=== PATIENT | male | born 1945 | race Caucasian/White ===

== ENCOUNTER 2017-06-11 06:46 | Day surgery (SDC) | payer MEDICARE, OTHER ==
[~2017-06-11] VITALS: Ht 190.5 cm; Wt 109.6 kg
[2017-06-11] VITALS (17 sets, daily range): BP systolic 120–165; BP diastolic 70–86; PULSE 71–92; RESP 18; TEMP 97.3–98.1; O2SAT 95–99
[2017-06-11 07:51] LABS: AUTOMATED NEUTROPHIL # 5.1 TH/MM3 (1.8-7.7); BASOPHIL % 0.3 % (0.0-2.0); EOSINOPHIL % 0.8 % (0.0-4.0); HEMATOCRIT 41.2 % (39.0-51.0); HEMO FLAGS DIFF FINAL; LYMPH % 10.8 % (9.0-44.0); LYMPHOCYTE # 0.7 TH/MM3 (1.0-4.8); MEAN CELL VOLUME 93.6 FL (80.0-100.0); MEAN CORPUSCULAR HEMOGLOBIN 32.4 PG (27.0-34.0); MEAN CORPUSCULAR HGB CONC 34.6 % (32.0-36.0); MONO % 8.6 % (0.0-8.0); NEUT % 79.5 % (16.0-70.0); PLATELET COUNT 149 TH/MM3 (150-450); RED CELL DISTRIBUTION WIDTH 14.1 % (11.6-17.2); WHITE BLOOD COUNT 6.4 TH/MM3 (4.0-11.0)
[2017-06-11] MEDS ORDERED: CHOL10008 PO (07:58)
[2017-06-11] MEDS ORDERED: VITA250C3 CHEW (07:58)
[2017-06-11] MEDS ORDERED: POTA99TA4 PO (07:58)
[2017-06-11] MEDS ORDERED: tumeric (07:58)
[2017-06-11] MEDS ORDERED: LISI10TA3 PO (07:58)
[2017-06-11] MEDS ORDERED: XARE20TA PO (07:58)
[2017-06-11 08:00] LABS: APTT (PATIENT) 24.7 SEC (24.3-30.1); INTERNATIONAL NORMALIZED RATIO 1.1 RATIO; PROTHROMBIN TIME - PATIENT 10.7 SEC (9.8-11.6)
[2017-06-11 08:10] LABS: POTASSIUM 4.3 MEQ/L (3.5-5.1)
[2017-06-11] MEDS ORDERED: SODIUM CHLORID 0.9% 500 ML IV PRN (08:15)
[2017-06-11] MEDS ORDERED: METOPROLOL TARTRATE 25 MG TAB PO PRN (08:15)
[2017-06-11] MEDS ORDERED: CHLORHEXIDINE GLUCONATE 2 % 1 PACK (2 CLOTHS) TOPICAL PRN (08:15)
[2017-06-11] MEDS ORDERED: LORazepam 1 MG TAB SL SCH (08:15)
[2017-06-11] MEDS ORDERED: LACTATED RINGER'S 1000 ML IV PRN (08:15)
[2017-06-11] MEDS ORDERED: POVIDONE IODINE 5% (ANTISEPSIS KIT) 4 APPLICATIONS EACH NARE PRN (08:15)
[2017-06-11] MEDS ORDERED: INSULIN HUMAN REGULAR 1,000 UNITS/10 ML VIAL SQ PRN (08:15)
[2017-06-11] MEDS ORDERED: HEPARIN-NS/PF INJ 2,000 ML ONE (08:19)
[2017-06-11] MEDS ORDERED: SODIUM CHLORID 0.9% 500 ML INJ 500 ML IV SCH (08:30)
[2017-06-11] MEDS ORDERED: HEPARIN-D5W 25,000 U/250 ML 250 ML ONE (08:55)
[2017-06-11] MEDS ORDERED: LEVOFLOXACIN 500 MG PREMIX INJ 100 ML IV ONE (08:55)
[2017-06-11] MEDS ORDERED: ISOPROTERENOL HCL 1 MG/5 ML AMP ONE (08:55)
[2017-06-11] MEDS ORDERED: PROTAMINE SULFATE 50 MG/5 ML VIAL ONE ×2 (08:55→11:23)
[2017-06-11] MEDS ORDERED: HEPARIN SODIUM - IV 10,000 UNITS/10 ML VIAL ONE (08:55)
[2017-06-11] MEDS ORDERED: LORazepam 2 MG/ML VIAL IV PUSH PRN (11:15)
[2017-06-11] MEDS ORDERED: ONDANSETRON HCL 4 MG/2 ML VIAL IV PUSH PRN (11:15)
[2017-06-11] MEDS ORDERED: SODIUM CHLOR 0.9% 250 ML INJ 250 ML IV PRN (11:15)
[2017-06-11] MEDS ORDERED: ATROPINE SULFATE 1 MG/ML VIAL IV PUSH PRN (11:15)
[2017-06-11] MEDS ORDERED: oxyCODONE/ACETAMINOPHEN 5 MG/325 MG TAB PO PRN ×2 (11:15)
[2017-06-11] MEDS ORDERED: LIDOCAINE HCL 1% 50 ML VIAL INFIL PRN (11:15)
[2017-06-11] MEDS ORDERED: BACITRACIN OINT 0.9 GM PKT TOP ONE (12:00)
[2017-06-11] MEDS: LISINOPRIL 10 MG TAB PO SCH (12:00)
--- NOTE | 2017-06-11 12:03 | CATHPROC ---
[employer] HIS Report Study Information Study Number Admission Scheduled Start Study Start [id number] Jun 11 2017 6:46AM 06/11/2017 Jun 11 2017 8:05AM [facility] Electrophysiology Study Admit Source Facility Department Other [facility] - Garage Manager Physician and Clinical Staff Initial Beau Santos Immigration Specialist Zuleyma Campbell,RN POSTPARTUM TECH2 Other Anesthesia, ROUNDER AND BACKER Recorder Miesha Joy,RN Scrub Deedee Richardson,RT(R) TECH2 Procedures Performed Procedure Location (Site) Vessel Name Cardioversion ICE CATHETER INSERT RA Atruim RF Ablation LT. ATRIUM LT. ATRIUM Equipment Time Art Instructor Description Size Mfg Part Number Used/Scraped NEEDLE, TRANSSEPTAL NRG 98 08:44 [facility] [id number] Used C1 [employer]/ EP 08:44 KIT, TRANSDUCER / AFIB [id number] Used PACER [id number] CATHETER, TACTICATH ABLAT BUNDLE 08:44 [facility] Used 65 BUNDLE *[id number] BUNDLE [id number] CATHETER, FR7 OPTIMA SPIRAL 08:44 B[facility] FR7 *[id number]- Used BUNDLE BUNDLE [id number] 08:44 [facility] CATHETER, JSN, QUAD BUNDLE FR 5 *[id number]- Used BUNDLE [id number] 08:44 [facility] CATHETER, JSN, QUAD BUNDLE FR 5 *[id number]- Used BUNDLE [id number] SET, COOL POINT TUBING 08:44 BUND[facility] *[id number]- Used BUNDLE BUNDLE SHEATH, FR8.5 STEERABLE SM 08:44 BUND[facility] 71CM [id number] Used 71CM BUNDLE COVER, TRANSDUCER CABLE 08:44 Tonchidot [id number] Used ACUNAV 08:44 CORDIS/PACER SHEATH, FR10 SHERYL 11CM FR 10 [id number] Used 08:44 CORDIS/PACER SHEATH, FR9 SHERYL 11CM FR 9 [id number] Used [id number] 08:44 MEDLINE IND[employer] PACK, CCL CUSTOM * Used *[id number] 08:44 MEDLINE PACER ROWAN, LIMB * 2530 *[id number] Used [id number] 08:44 icix MEDICAL SHEATH, FR4.5 PRELUDE 11CM FR 4.5 Used [id number] 08:44 NAMIC TUBING, HIGH PRESSURE 48" 48" Used *[id number] 08:44 NAMIC TUBING, HIGH PRESSURE 48" 48" Used *[id number] 08:44 [employer] MEDICAL BLANKET,WARM AIR CCL * Used *[id number] 08:44 [facility] MEDICAL ELECTRODE KIT, JENNIFER X SURFACE * Used *[id number] 08:44 [facility] MEDICAL SHEATH, EPS, FR6 FAST CATH FR 6 Used *[id number] 08:44 [facility] MEDICAL SHEATH, EPS, FR7 FAST CATH FR 7 [id number] Used [id number] 08:44 [facility] MEDICAL SHEATH, EPS, FR8 FAST CATH FR 8 Used *[id number] CATHETER, ACUNAV FR10 ICE [id number] 09:46 NAIMA FR 10 Used (NAIMA) *[id number] [facility] PAD, ELECTROSURGICAL 08:44 * [id number] *[id number] Used SURGICAL GROUNDING (BLUE) History: Current Medications Medication Dosage/Unit Route Frequency Last Date/Time Taken LISINOPRIL XARELTO History: Allergies Allergy Reaction strawberry almond History: Risk Factors Hypertension Dyslipidemia Yes Yes History: Symptoms/Diagnosis Selection Items SOB History: Stress Tests Stress or Imaging Studies Performed Yes Standard Exercise Stress Test No Stress Echo No Stress Test SPECT Stress Test SPECT Result Yes Negative Stress Test CMR No Cardiac CTA Coronary Calcium Score No No History: Other Current Smoker No Labs Hgb (g/dl) Hct (%) RBC (MIL/MM3) WBC (l/cumm) Platelets (thousands) 11.60-17.00 35.00-51.00 4.00-5.90 4.00-11.00 150.00-450.00 14.3 41.2 4.4 6.4 149 Glucose (mg/dl) BUN (mg/dl) Creatinine (mg/dl) BUN:Creatinine (1:x) 74.00-106.00 7.00-18.00 0.50-1.30 10.00-20.00 104 13 0.7 18.6 Na (meq/l) K (meq/l) Cl (meq/l) CO2 (mmol/L) Ca (mg/dl) 136.00-145.00 3.50-5.10 98.00-107.00 21.00-32.00 8.50-10.10 140 4.3 108 25 9.4 PT (sec) PTT (sec) INR (PTT:PT) 9.80-11.60 24.30-30.10 0.90-1.10 10.7 24.7 1.1 CPK-MB (ng/ML) 0.50-3.60 Not Drawn Medication Medication Total Dose (Bolus/Oral) Medication Total Dosage/Unit 1% XYLOCAINE 40 mL HEPARIN 97877 units PROTAMINE 60 mg Medications (Bolus/Oral) Medication Time Given Dosage/Unit Administered By Reason 1% XYLOCAINE 06/11/2017 9:37:28 AM 20 mL Beau Butterfield 20 mL 1% XYLOCAINE given in lab by Beau Butterfield in Left Groin via Subcutaneous. 1% XYLOCAINE 06/11/2017 9:42:00 AM 20 mL Beau Butterfield 20 mL 1% XYLOCAINE given in lab by Beau Butterfield in Right Groin via Subcutaneous. HEPARIN 06/11/2017 9:49:31 AM 28776 units Anesthesia, ROUNDER AND BACKER As per physicians ve rbal order 67680 units HEPARIN given in lab by Anesthesia, ROUNDER AND BACKER via Peripheral IV. Ordered by Beau Butterfield. Janey son: As per physicians verbal order. HEPARIN 06/11/2017 10:00:43 AM 4000 units Anesthesia, ROUNDER AND BACKER As per physicians ve rbal order 4000 units HEPARIN given in lab by Anesthesia, ROUNDER AND BACKER via Peripheral IV. Ordered by Beau Butterfield. Reas on: As per physicians verbal order. HEPARIN 06/11/2017 10:13:14 AM 3000 units Anesthesia, ROUNDER AND BACKER As per physicians ve rbal order 3000 units HEPARIN given in lab by Anesthesia, ROUNDER AND BACKER via Peripheral IV. Ordered by Beau Butterfield. Reas on: As per physicians verbal order. HEPARIN 06/11/2017 10:27:58 AM 4000 units Anesthesia, ROUNDER AND BACKER As per physicians ve rbal order 4000 units HEPARIN given in lab by Anesthesia, ROUNDER AND BACKER via Peripheral IV. Ordered by Beau Butterfield. Ollie on: As per physicians verbal order. PROTAMINE 06/11/2017 11:10:25 AM 40 mg Anesthesia, ROUNDER AND BACKER As per physicians wyatt bal order 40 mg PROTAMINE given in lab by Anesthesia, ROUNDER AND BACKER via Peripheral IV. Ordered by Beau Butterfield. Reason: As per physicians verbal order. PROTAMINE 06/11/2017 11:22:24 AM 20 mg Anesthesia, ROUNDER AND BACKER As per physicians wyatt bal order 20 mg PROTAMINE given in lab by Anesthesia, ROUNDER AND BACKER via Peripheral IV. Ordered by Beau Butterfield. Reason: As per physicians verbal order. Medication (Drip) Medication Time Given Dosage/Unit Concentration/Unit Diluent (ml) Solution HEPARIN DRIP 06/11/2017 10:01:23 AM 1000 units/hr 54377 units 250 D5W 1000 units/hr HEPARIN DRIP given in lab by Anesthesia, ROUNDER AND BACKER via Peripheral IV. Pump/Drip Flow = 10 ml /hr using [place] [address] units in 250 ml. Ordered by Beau Butterfield. Reason: As per physicians verbal order. ISUPREL 06/11/2017 10:59:53 AM 20 mcg/min 1 mg 250 NaCl .9 20 mcg/min ISUPREL given in lab by Anesthesia, ROUNDER AND BACKER in Right Forearm via Peripheral IV. Pump/Drip Chandler w = 300 ml/hr using NaCl .9 with a concentration of 1 mg in 250 ml. Ordered by Beau Butterfield. IV Solutions 06/11/2017 8:37:53 AM 0 mL (IV) 500 NaCl .9 IV Solutions given in lab by Miesha Joy RN in Right Forearm via Peripheral IV. Pump/Drip Flow = 20 ml/hr using NaCl .9. Ordered by Beau Butterfield. IV Solutions 06/11/2017 8:39:43 AM 0 mL (IV) 500 NaCl .9 IV Solutions given in lab by Miesha Joy RN in Left Forearm via Peripheral IV. Pump/Drip Flow = 20 ml/hr using NaCl .9. Ordered by Beau Butterfield. LEVAQUIN 06/11/2017 9:23:50 AM 500 mg 500 mg LEVAQUIN given in lab by Anesthesia, ROUNDER AND BACKER in Right Forearm via Peripheral IV. Ordered by Beau Butterfield. Reason: As per physicians verbal order. For York insertion Initial Case Assessment Cardiovascular HR Rhythm NIBP Chest Pain 65 a-fib 153/77 0 Circulatory - Right Pulses Dorsalis Pedis Femoral 2 2 Scale (0,1,2,3,4,d) Circulatory - Left Pulses Dorsalis Pedis Femoral 2 2 Scale (0,1,2,3,4,d) Neurological State Oriented to time-place- Alert Moves all extremities person Respiration - General Respiration Rate SpO2 (%) (B/min) 11 99 Final Case Assessment Cardiovascular HR Rhythm NIBP Chest Pain 104 st 95/59 0 Edema Present Skin color Skin None Normal Warm Dry Circulatory - Right Pulses Dorsalis Pedis 2 Scale (0,1,2,3,4,d) Circulatory - Left Pulses Dorsalis Pedis 2 Scale (0,1,2,3,4,d) Circulatory - Lower Extremities Color Lower Right Color Lower Left Normal Normal Neurological State Lethargic Moves all extremities Respiration - General Respiration Rate SpO2 (%) O2 (lpm) (B/min) 14 96 4 Chronological Log Time Study Chronological Log 8:28:00 Patient arrived via Bed. 8:28:01 Patient Name, D.O.B, / Armband Verified By R.N. 8:28:05 Pre-op and post- op instructions given; patient acknowledges understanding of instructions. 8:37:08 Verbal Stimulation=2 Physical Stimulation=2 Airway=2 Respiration=2 TOTAL=8. (0=absent, 1=li mited, 2=present) 8:37:22 Presedation assessment performed by Garage Manager RN. 8:37:33 Patient has been NPO for More than 6Hrs. 8:37:35 Skin Breakdown- generalized bruising 8:37:40 Disposable Defibrillator Pads Placed On Patient. 8:37:42 Ethan Prominences Protected 8:37:46 Patient Warmer Placed on the Table. 8:37:52 A # 20 IV was noted in the Forearm (right). Grade = patent IV Solutions given in lab by Miesha Joy RN in Right Forearm via Peripheral IV. Pump/Drip Flow = 20 ml/hr using 8:37:53 NaCl .9. Ordered by Beau Butterfield. 8:39:25 A # 20 IV was noted in the Forearm (left). Grade = patent IV Solutions given in lab by Miesha Joy RN in Left Forearm via Peripheral IV. Pump/Drip F low = 20 ml/hr using 8:39:43 NaCl .9. Ordered by Beau Butetrfield. 8:40:04 History and physical on the chart or being dictated. Assessment: Initial Case, HR=65 BPM, Rhythm=a-fib, PELO=251/77 mmhg, Chest Pain=0 Right Pulses: Zhou Ped=2, Femoral=2 8:47:31 Left Pulses: Zhou Ped=2, Femoral=2 Neurological: State=Alert, Ox3, JIMENEZ Respiration: Resp=11 B/min, SpO2=99 % 8:47:41 Table restraints applied according to hospital policy 8:48:31 HR=73 bpm, AYXU=660/77 mmhg, SpO2=99 %, Resp=18 B/min, Pain=0, Citlalli=10, Cruz=2 8:56:17 HR=68 bpm, BVUM=569/76 mmhg, SpO2=99 %, Resp=19 B/min 8:57:31 Anesthesia at bedside. RICK Carrillo Assumes care of patient. 9:00:40 Reference ECG taken 9:06:14 History and physical on the chart. 9:10:50 MD arrived. 9:15:58 Anesthesia present for intubation. 14 FR york inserted by VIKRAM w/o debbie. Clear yello w urine obtained. 500 mg LEVAQUIN given in lab by Anesthesia, ROUNDER AND BACKER in Right Forearm via Peripheral IV. Ordered by Beau Butterfield. 9:23:50 Reason: As per physicians verbal order. For York insertion Time Out. Correct patient, procedure, procedure equipment, site and side verified with physician present. Time 9:34:19 concurred by MD, individual staff and ROUNDER AND BACKER. Time Out #2 - Consents verified, patient in correct position, all results are labled and display ed, safety precautions 9:34:50 taken, antibiotics administered. Time out concurred by MD, individual staff and ROUNDER AND BACKER in procedur e 9:34:54 Case Start 9:35:00 Ramiro in progress. 9:37:00 Ramiro complete 9:37:28 20 mL 1% XYLOCAINE given in lab by Beau Butterfield in Left Groin via Subcutaneous. 9:38:10 Vascular access was obtained in the Fem Vein (left). 9:38:28 Vascular access was obtained in the Fem Vein (left). 9:38:35 Vascular access was obtained in the Fem Vein (left). 9:38:47 Vascular access was obtained in the Fem Art (left). A SHEATH, FR4.5 PRELUDE 11CM FR 4.5 was advanced into the Fem Art (left) using the Modified Seld hussain technique. 9:39:01 0.9ns pressure bag connected. 9:39:22 A SHEATH, EPS, FR6 FAST CATH FR 6 was advanced into the Fem Vein (left) using the Modified S eldinger technique. 9:39:34 A SHEATH, EPS, FR7 FAST CATH FR 7 was advanced into the Fem Vein (left) using the Modified S eldinger technique. 9:39:47 A SHEATH, FR10 SHERYL 11CM FR 10 was advanced into the Fem Vein (left) using the Modified Se moreno technique. 9:42:00 20 mL 1% XYLOCAINE given in lab by Beau Butterfield in Right Groin via Subcutaneous. 9:43:00 Vascular access was obtained in the Fem Vein (right). 9:43:14 A SHEATH, EPS, FR8 FAST CATH FR 8 was advanced into the Fem Art (right) using the Modified S eldinger technique. A CATHETER, JSN, QUAD BUNDLE FR 5 was advanced vis Fem Vein (left) and placed in the CS. Placeme nt was visually 9:43:58 confirmed under fluoroscopy. A CATHETER, JSN, QUAD BUNDLE FR 5 was advanced vis Fem Vein (left) and placed in the HIS. Placem ent was 9:44:14 visually confirmed under fluoroscopy. 9:45:27 CATHETER, ACUNAV FR10 ICE ([place]) FR 10 Was Postioned. A SHEATH, FR8.5 STEERABLE SM 71CM BUNDLE 71CM was exchanged in the Fem Vein (right). This was ne cessary in 9:45:55 order for catheter support. 33475 units HEPARIN given in lab by Anesthesia, ROUNDER AND BACKER via Peripheral IV. Ordered by Beau Butterfield . Reason: As per 9:49:31 physicians verbal order. 9:50:06 [place] in 9:50:20 A eps was advanced to the right atrium and passed through the septal wall to the left atrium . 9:50:23 [place] out A CATHETER, FR7 OPTIMA SPIRAL BUNDLE FR7 was advanced vis Fem Vein (right) and placed in the LA . Placement 9:50:59 was visually confirmed under fluoroscopy. Mapping in progress. 9:55:17 Activated Clotting Time Drawn 10:00:09 ACT (Normal Range 90-180) = 265 4000 units HEPARIN given in lab by Anesthesia, ROUNDER AND BACKER via Peripheral IV. Ordered by Beau Btuterfield . Reason: As per :00:43 physicians verbal order. 10:01:00 Mapping complete. Catheter was removed A CATHETER, TACTICATH ABLAT 65 BUNDLE was advanced vis Fem Vein (right) and placed in the LA. P lacement was 10:01:10 visually confirmed under fluoroscopy. 1000 units/hr HEPARIN DRIP given in lab by Anesthesia, ROUNDER AND BACKER via Peripheral IV. Pump/Drip Flow = 10 ml/hr using 10:01:23 D[place] [address] units in 250 ml. Ordered by Beau Butterfield. Reason: As per corky coppolaians verbal order. 10:01:51 RF Ablation of the LT. ATRIUM with a CATHETER, TACTICATH ABLAT 65 BUNDLE. 10:06:12 Activated Clotting Time Drawn 10:12:50 ACT (Normal Range 90-180) = 300 3000 units HEPARIN given in lab by Anesthesia, ROUNDER AND BACKER via Peripheral IV. Ordered by Beau Butterfield . Reason: As per 10:13:14 physicians verbal order. 10:19:53 Activated Clotting Time Drawn 10:26:25 ACT (Normal Range 90-180) = 297 4000 units HEPARIN given in lab by Anesthesia, ROUNDER AND BACKER via Peripheral IV. Ordered by Beau Butterfield . Reason: As per 10:27:58 physicians verbal order. 10:32:41 Activated Clotting Time Drawn 10:43:02 ACT (Normal Range 90-180) = 390 10:55:18 Ablation Catheter was removed A CATHETER, FR7 OPTIMA SPIRAL BUNDLE FR7 was advanced vis Fem Vein (right) and placed in the RA . Placement 10:55:46 was visually confirmed under fluoroscopy. 10:57:26 ECG rhythm of AF noted. Patient cardioverted at 200 joules, synchronized. Success 10:57:43 HR=66 bpm, NIBP=99/54 mmhg, SpO2=97 %, Resp=14 B/min 20 mcg/min ISUPREL given in lab by Anesthesia, ROUNDER AND BACKER in Right Forearm via Peripheral IV. Pump/Dr ip Flow = 300 ml/hr 10:59:53 using NaCl .9 with a concentration of 1 mg in 250 ml. Ordered by Beau Butterfield. 11:08:22 Isuprel off 11:08:44 Ablation complete. Catheter(s) removed without difficulty 11:09:00 Heparin off 40 mg PROTAMINE given in lab by Anesthesia, ROUNDER AND BACKER via Peripheral IV. Ordered by Beau Butterfield. R kathy: As per 11:10:25 physicians verbal order. 11:18:11 Activated Clotting Time Drawn 11:22:19 ACT (Normal Range 90-180) = 219 20 mg PROTAMINE given in lab by Anesthesia, ROUNDER AND BACKER via Peripheral IV. Ordered by Beau Butterfield. Bart chavez: As per 11:22:24 physicians verbal order. 11:29:10 Activated Clotting Time Drawn 11:32:00 ACT (Normal Range 90-180) = 143 11:32:20 Right groin venous sheath removed; pressure applied to access siteby TF. 11:34:09 Left fem arterial sheath removed; pressure applied to access site by HH. 11:46:47 Left fem venous sheaths removed; pressure applied to access site by HH. 12:00:16 Sterile dressings applied to sites. Sites wnl. 12:01:50 Case End 12:01:50 No case complications noted. 12:01:51 Cine recording checked. 12:02:05 PACU called. Spoke to Mal 12:02:18 Bedside Report will be given. 12:02:30 Defibrillator and ground pads removed. Skin intact. Assessment: Final Case, UF=558 BPM, Rhythm=st, NIBP=95/59 mmhg, Chest Pain=0, Edema=None, [place] r=Normal, Skin = Warm, Dry Right Pulses: Zhou Ped=2 Left Pulses: Zhou Ped=2 12:02:55 Lower Right Extremities: Color=Normal Lower Left Extremities: Color=Normal Neurological: State=Lethargic, JIMENEZ Respiration: Resp=14 B/min, SpO2=96 %, O2=4 lpm 12:05:32 Patient moved to [facility] End Study - Contrast Media Used In Study Contrast Total Opened (mL) Total Used (mL) Total Wasted (mL) Unspecified 0 0 0 End Study - Maximum Contrast Load Max Contrast Load (mL) 769.2 End Study - Radiation Exposure Fluoro Time (minutes) 1.2 End Study - Patient Disposition Complications Transferred To Interventional Outcome No Telemetry Bed successful
[2017-06-11] MEDS ORDERED: *ONDANSETRON 4 MG VIAL PERIprocedural Use ONLY ONE (12:26)
[2017-06-11] MEDS ORDERED: DO NOT ADM ANY ANTICOAGULANT DRUGS PRN (12:45)
[2017-06-11] MEDS ORDERED: *PROMETHAZINE 25 MG/ML VIAL PERIprocedural use ONLY ONE (12:58)
--- NOTE | 2017-06-11 14:30 | EKG ---
Date Performed: 06/11/2017 Time Performed: 07:53:16 PTAGE: 71 years EKG: Atrial fibrillation. Lead(s) unsuitable for analysis: V6 Poor R wave progression - probable normal variant Inferior T wave changes are nonspecific Abnormal ECG NO PREVIOUS TRACING DOCTOR: Eliseo Perez Interpretating Date/Time 06/11/2017 14:28:34
[2017-06-11] MEDS: RIVAROXABAN 20 MG TAB PO SCH (16:24)
[2017-06-12] VITALS (14 sets, daily range): BP systolic 132–160; BP diastolic 69–84; PULSE 70–91; RESP 15–19; TEMP 98.2–98.6; O2SAT 99–100
[2017-06-12 06:12] LABS: APTT (PATIENT) 26.1 SEC (24.3-30.1); INTERNATIONAL NORMALIZED RATIO 1.1 RATIO; PROTHROMBIN TIME - PATIENT 11.4 SEC (9.8-11.6)
[2017-06-12] MEDS: LISINOPRIL 10 MG TAB PO SCH (09:22)
[2017-06-12] MEDS: RIVAROXABAN 20 MG TAB PO SCH (09:22)
--- NOTE | 2017-06-12 11:32 | PD.CARD.PN ---
Subjective Subjective Remarks s/p afib ablation Doing well, up to the chair with complaints Objective Medications Current Medications Medications (Trade) Dose Ordered Sig/Duke Route Start Time Stop Time Status Last Admin Sodium Chloride 500 ml @ 30 mls/hr [id number] IV 06/11/17 08:30 (Ativan) 1 mg IT COMMUNICATIONS MANAGER SL 06/11/17 08:15 06/14/17 08:14 Lactated Ringer's 1,000 ml @ 30 mls/hr Q24H PRN IV 06/11/17 08:15 06/14/17 08:14 Sodium Chloride 500 ml @ 30 mls/hr [id number] PRN IV 06/11/17 08:15 06/14/17 08:14 (Lopressor) 25 mg IT COMMUNICATIONS MANAGER PRN PO 06/11/17 08:15 06/14/17 08:14 (Betadine 5% Antisepsis Kit) 1 applic IT COMMUNICATIONS MANAGER PRN EACH NARE 06/11/17 08:15 06/14/17 08:14 (Chlorhexidine 2% Cloth) 3 pack IT COMMUNICATIONS MANAGER PRN TOPICAL 06/11/17 08:15 06/14/17 08:14 (NovoLIN R INJ) See Protocol Table ... IT COMMUNICATIONS MANAGER PRN SQ 06/11/17 08:15 06/14/17 08:14 (Percocet 5-325 Mg) 1 tab Q4H PRN PO 06/11/17 11:15 (Percocet 5-325 Mg) 2 tab Q4H PRN PO 06/11/17 11:15 (Atropine Inj) 0.5 mg UNSCH PRN IV PUSH 06/11/17 11:15 (Zofran Inj) 4 mg Q4H PRN IV PUSH 06/11/17 11:15 (Prinivil) 10 mg DAILY PO 06/11/17 12:00 06/12/17 09:22 (Xarelto) 20 mg DAILY PO 06/11/17 18:00 06/12/17 09:22 Miscellaneous Information ALL NURSING DEPARTME... UNSCH PRN .XX 06/11/17 12:45 06/12/17 12:44 Vital Signs / I&O Vital Signs Date Time Temp Pulse Resp B/P (MAP) Pulse Ox O2 Delivery O2 Flow Rate FiO2 06/12/17 06:00 70 06/12/17 05:00 80 06/12/17 04:00 78 06/12/17 03:00 76 06/12/17 03:00 98.2 81 18 132/76 (94) 99 06/12/17 02:00 76 06/12/17 01:00 78 06/12/17 00:00 91 06/11/17 23:00 97.7 71 18 157/81 (106) 95 06/11/17 23:00 91 06/11/17 22:00 84 06/11/17 21:00 84 06/11/17 20:00 97.3 80 18 120/75 (90) 97 06/11/17 20:00 86 06/11/17 19:00 83 06/11/17 18:00 84 06/11/17 17:50 85 06/11/17 17:00 80 06/11/17 16:30 97.7 87 18 131/76 (94) 98 06/11/17 16:00 97.7 88 18 145/78 (100) 98 06/11/17 16:00 82 06/11/17 15:30 98.1 83 18 139/70 (93) 98 06/11/17 15:00 98.1 92 18 141/79 (99) 99 06/11/17 15:00 83 06/11/17 14:30 98.0 81 18 141/77 (98) 98 06/11/17 14:00 98.0 90 18 132/76 (94) 99 06/11/17 13:45 97.4 86 18 140/80 (100) 97 06/11/17 13:30 97.5 87 18 143/85 (104) 97 06/11/17 13:20 97.6 93 15 156/95 (115) 95 Nasal Cannula 3 06/11/17 13:00 88 15 162/83 (109) 95 Nasal Cannula 3 06/11/17 12:45 90 15 149/80 (103) 95 Nasal Cannula 3 06/11/17 12:30 92 15 138/67 (90) 95 Nasal Cannula 3 06/11/17 12:13 97.9 91 15 139/82 (101) 95 Nasal Cannula 3 I/O 06/11/17 06/11/17 06/11/17 06/12/17 06/12/17 06/12/17 06:59 14:59 22:59 06:59 14:59 22:59 Intake Total 100 ml 200 ml 700 ml Output Total 75 ml 300 ml 450 ml Balance 25 ml -100 ml 250 ml Intake Oral 200 ml 700 ml IV Total 100 ml Output Urine Total 75 ml 300 ml 450 ml # Voids 1 Physical Exam GENERAL: NAD, AAOx3 SKIN: Warm and dry. HEAD: Atraumatic. Normocephalic. EYES: Pupils equal and round. No scleral icterus. No injection or drainage. ENT: No nasal bleeding or discharge. Mucous membranes pink and moist. NECK: Trachea midline. No JVD. CARDIOVASCULAR: Regular rate and rhythm. RESPIRATORY: No accessory muscle use. Clear to auscultation. Breath sounds equal bilaterally. GASTROINTESTINAL: Abdomen soft, non-tender, nondistended. Hepatic and splenic margins not palpable. MUSCULOSKELETAL: Extremities without clubbing, cyanosis, or edema. No obvious deformities. Bilateral groins without hematoma/bruit NEUROLOGICAL: Awake and alert. No obvious cranial nerve deficits. Motor grossly within normal limits. Five out of 5 muscle strength in the arms and legs. Normal speech. PSYCHIATRIC: Appropriate mood and affect; insight and judgment normal. Laboratory Laboratory Tests Test 06/12/17 05:33 Prothrombin Time 11.4 SEC Prothromb Time International Ratio 1.1 RATIO Activated Partial Thromboplast Time 26.1 SEC Assessment and Plan Problem List: (1) Atrial fibrillation ICD Codes: I48.91 - Unspecified atrial fibrillation (2) S/P ablation of atrial fibrillation ICD Codes: Z98.890 - Other specified postprocedural states; Z86.79 - Personal history of other diseases of the circulatory system Assessment and Plan 1) s/p Afib ablation 2) Doing well, no complaints 3) Cardiovascularly stable for discharge, follow up with Obdulio Calixto DO Jun 12, 2017 11:31
--- NOTE | 2017-06-12 13:32 | EKG ---
Date Performed: 06/11/2017 Time Performed: 12:32:00 PTAGE: 71 years EKG: Sinus rhythm WITH OCCASIONAL VENTRICULAR PREMATURE COMPLEXES SINUS ARRHYTHMIA PRESENT POOR INITIAL ANTERIOR FORCE S V1 AND V2, PROBABLE NORMAL VARIANT Compared to previous tracing, the rhythm has changed from atrial fibrillation to sinus rhythm. The PVCs are new. ABNORMAL ECG PREVIOUS TRACING : 06/11/2017 07.53 DOCTOR: Ricardo Chen Interpretating Date/Time 06/12/2017 13:32:17
== END 2017-06-12 12:35 | disposition home or self-care (01) ==
LOC: HDOC 06:46 → HDIC 06:47 → HCPC 13:48 → HDOC 06-12 12:35
PROVIDERS: ATTEND Internal Medicine Interventional Cardiology
DX: I48.2 Chronic atrial fibrillation (principal); I10 Essential (primary) hypertension; R53.83 Other fatigue; R06.02 Shortness of breath; Z79.01 Long term (current) use of anticoagulants
CPT/HCPCS: 00537; 80048; 85002; 85025; 85610; 85730; 86850; 86900; 86901; 92960; 93005; 93613; 93623; 93656; 93662; C1730; C1731; C1732; C1759; C1766; C2630; J1644; J1956; J2405; J2550; J2720